=== PATIENT | female | born 1985 | race Caucasian/White ===

== ENCOUNTER 2017-05-10 13:38 | Emergency (ER) | payer OTHER ==
[2017-05-10] MEDS ORDERED: NORMAL SALINE 10 ML SYRINGE FLUSH IVP PRN (14:04)
[2017-05-10] MEDS ORDERED: Sodium Chloride 0.9% 1,000 ML PRIMARY IV ONE ×2 (14:04→17:16)
[2017-05-10 14:12] VITALS: TEMP 100
[2017-05-10 14:15] LABS: BASOPHILS # (AUTO) 0.07 10*3/UL; BASOPHILS % (AUTO) 0.8 % (0-1); EOSINOPHILS # (AUTO) 0.09 10*3/UL; EOSINOPHILS % (AUTO) 1.1 % (0-8); HEMATOCRIT 37.8 % (37.0-47.0); LYMPHOCYTES # (AUTO) 1.77 10*3/uL; MEAN CORPUSCULAR HEMOGLOBIN 30.5 PG (27-31); MEAN CORPUSCULAR HGB CONC 34.4 g/dL (33-37); MEAN CORPUSCULAR VOLUME 88.7 FL (81-99); MONOCYTES # (AUTO) 0.54 10*3/UL (0.3-0.8); MONOCYTES % (AUTO) 6.5 % (5-15); NEUTROPHILS # (AUTO) 5.81 10*3/UL; NEUTROPHILS % (AUTO) 70.1 % (50-80); RED BLOOD COUNT 4.26 10^6/uL (4.20-5.40)
[2017-05-10 14:16] LABS: BILIRUBIN,URINE NEGATIVE (NEG); CLARITY,URINE CLEAR (CLEAR); COLOR,URINE YELLOW; GLUCOSE, URINE (UA) NEGATIVE (NEG); NITRATE,URINE NEGATIVE (NEG); OCCULT BLOOD,URINE NEGATIVE (NEG); PH,URINE 5.5 (5.0-8.5); PROTEIN,URINE NEGATIVE (NEG); UROBILINOGEN,URINE 0.2 EU/dL (0.2)
[2017-05-10 14:17] LABS: URINE SAMPLE TYPE VOIDED SPECIMEN
[2017-05-10 14:27] LABS: BLOOD UREA NITROGEN 5 mg/dL (7-22); CALCIUM 9.9 mg/dL (8.7-10.7); EST GLOMERULAR FILTRATION > 60 (>60 ml/min/1.73m(2)); LIPASE 31 IU/L (23-300); SERUM ALBUMIN 4.9 g/dL (3.5-4.8)
[2017-05-10] MEDS ORDERED: MORPHINE SULFATE 4 MG/1 ML IVP ONE ×2 (14:41→17:14)
[2017-05-10] MEDS ORDERED: ONDANSETRON 4 MG/2 ML VIAL IVP ONE (14:41)
[2017-05-10 14:53] LABS: PLATELET MORPHOLOGY COMMENT NORMAL MORPHOLOGY (NORM); RBC MORPHOLOGY COMMENT NORMAL MORPHOLOGY (NORM); WBC MORPHOLOGY COMMENT NORMAL MORPHOLOGY (NORM)
[2017-05-10] MEDS ORDERED: Famotidine Inj 20 MG in Normal Saline Flush 10 ML IVP ONE (15:49)
--- NOTE | 2017-05-10 17:06 | DI ---
History, right-sided abdominal pain Comparison: None Findings: There is unremarkable. Gallbladder is present Spleen unremarkable Pancreas unremarkable No adrenal masses Double aorta is unremarkable There is mild fullness in the superior pelvic calyceal system of the right kidney, but there are no r enal or ureteral calculi, and this may represent a parapelvic cyst. There is a 5 mm nonobstructing calculus in the left pelvic calyceal system. There is no left-sided hy dronephrosis. Left ureter is normal in course and caliber. Urinary bladder is a remarkable. Within the posterior true pelvis, there are 2 cystic lesions. One is positioned to the right of midli ne and measures roughly 5 x 5 x 5 cm. The second cystic lesion is positioned in the left posterior pe lvis and measures roughly 5 x 4 x 5 cm. The caba of the cystic lesions are within, and I can see no associated soft tissue density, however evaluation is limited due to lack of IV contrast enhancement. There are no gross uterine lesions. There is no intestinal obstruction. There is no focal inflammation to indicate appendicitis or divert iculitis. The appendix is normal in appearance. There is no free air. There is no free. Impression 2 large, simple appearing cyst in the posterior true pelvis. I can see no associated wall thickening, or soft tissue components, but evaluation is limited due to lack of IV contrast enhancement. These l ikely represent ovarian cyst. Nonobstructing calculus in the left pelvic calyceal system. Mild fullness in the superior pole calyx of the right kidney, but there are no obstructing calculi, a nd I believe this is an incidental finding. Findings were relayed to the ER physician at 4:50 PM
[2017-05-10 17:57] VITALS: RESP 14
--- NOTE | 2017-05-10 19:26 | DI ---
HISTORY: Pelvic mass/cyst. COMPARISON: None available. TECHNIQUE: Sonographic images of the pelvis were obtained and submitted for interpretation. FINDINGS: There is evidence of a 6 cm right and 4.3 cm left ovarian cyst. Uterus and endometrium ar e unremarkable. IMPRESSION: 1. Evidence of a 6 cm right and 4.3 cm left ovarian cyst. Uterus and endometrium are unremarkable. Followup recommended. NOTE: The interpreting Radiologist was not present at the time of ultrasound interrogation.
--- NOTE | 2017-05-11 06:26 | PDOC ---
Abdomen/Flank HPI - General Chief Complaint: Abdomen Pain Stated Complaint: RUQ PAIN Date Seen by Provider: 05/10/17 Time Seen by Provider: 13:55 Source: POSITIVE: Patient Exam Limitations: POSITIVE: No limitations Nurse's Notes Reviewed & Considered: Yes - History of Present Illness Initial Comments: The patient is a 32-year-old female. She states that for the past 3-4 days she has had "dull pain" in the right side of her abdomen, right upper quadrant more so than right lower. She's had 2 sections in the past and no other abdominal surgery. She states she's had nausea but no vomiting. 3 loose bowel movements today. No melena, hematochezia, hematemesis, dysuria or hematuria. Last menstrual period was 11 April. Body Location Affected: REPORTS: Abdomen Timing: REPORTS: Constant Duration: >24 hours (3-4 days) Severity: Moderate Quality: REPORTS: "Pain" Abdominal Pain Onset Location: REPORTS: RUQ, RLQ, Epigastric Abdominal Pain Radiation: REPORTS: No radiation Context: REPORTS: None Modifying Factors: improves with: Nothing Associated Symptoms: REPORTS: Nausea Similar Symptoms Previously: No Recent Care Received: REPORTS: Denies Any Prior Injuries Related to Current Complaint?: No - Patient Home Medications Home Medications: Home Medications Ibuprofen [Advil] 400 mg PO Q6H PRN PRN 05/10/17 Psyllium Husk [Metamucil] 1 each PO DAILY PRN 05/10/17 - Patient Allergies Allergies/Adverse Reactions: Allergies Allergy/AdvReac Type Severity Reaction Status Date / Time amoxicillin [Amoxicillin] Allergy Intermediate rash Verified 05/10/17 13:51 Past Medical History - heen HEENT History: Denies History Cardiovascular History: Denies History Respiratory History: Denies History Gastrointestinal History: GERD Additional Gastrointestinal History: Tums approx three times a week Genitourinary History: Denies History Endocrine History: Denies History Musculoskeletal History: Denies History Prosthesis or Implant: No Additional Musculoskeletal History: back pain with prenancy Neurological History: Denies History Blood Disorders: Denies History Psychiatric History: Denies History Additional Psychiatric History: concerned about depression History of Sexually Transmitted Diseases: No Female Reproductive History: Denies History LMP: 04/10/17 Obstetrical History: Delivery Cancer History: Denies History In Past Year Been Physically Harmed or Verbally Threatened: No History of MDRO: No History of Other Communicable Diseases: No Tobacco Use: Never Smoker Alcohol Use: None Substance Use Type: None Previous Surgical History: Yes Type / Date of Surgery: several years ago Tonsilar abscess and had T and A. C- Section 2014 Anesthesia Reactions: No Malignant Hyperthermia: No Significant Family History: Cancer, Diabetes, Hypertension Past Medical History Reviewed: Reviewed - No Changes ROS - Limitations ROS Limitations: No Limitations Constitution: REPORTS: Denies Symptoms Cardiovascular: REPORTS: Denies Cardiac Symptoms Respiratory: REPORTS: Denies Resp Symptoms Neurological: REPORTS: Denies Neuro Symptoms Gastrointestinal: REPORTS: Abdominal Pain, Nausea Endocrine: REPORTS: Denies Symptoms Musculoskeletal: REPORTS: Denies MS Symptoms Genitourinary: REPORTS: Denies Symptoms Eyes: REPORTS: Denies Symptoms ENT: REPORTS: Denies Symptoms Skin: REPORTS: Denies Skin Symptoms Lympathic: REPORTS: Denies Lympathic Symptoms Immunologic: POSITIVE: Denies Symptoms Psychiatric: POSITIVE: Denies Psych Symptoms Abdominal/Flank Pain PE - General Appearance General Appearance: POSITIVE: Alert, Cooperative, No Acute Distress, No Evidence of Trauma - HEENT HEENT: POSITIVE: Head Inspection Nml, Eyes Inspection Nml, Ears Inspection Nml, Nose Inspection Nml, Oral/Dental Inspect. Nml, Pharynx Inspect. Nml, PERRL, EOMI - Neck Neck: POSITIVE: Normal Inspection, No Apparent Injury - Respiratory Respiratory: POSITIVE: No Respiratory Distress, Breath Sounds Normal, Chest Non- Tender - Cardiovascular Cardiovascular: POSITIVE: Regular Rate and Rhythm, Heart Sounds Normal, Equal Pulses, Strong Pulses Peripheral Pulses: Radial (R): 2+, Radial (L): 2+ - Chest Chest: POSITIVE: Non Tender - Abdomen Abdomen: Soft: (All Quadrants), Normal Bowel Sounds: (All Quadrants), Denies Tenderness: (LLQ), (LUQ), No Splenomegaly: (All Quadrants), No Hepatomegaly: ( All Quadrants), No Guarding: (All Quadrants), No Rebound: (All Quadrants), No Palpable Pulse: (All Quadrants), No Palpabale Mass: (All Quadrants), No Distention: (All Quadrants), No Rigidity: (All Quadrants), Tenderness Noted: ( RUQ), (RLQ) Additional Abdominal Details: Abdominal examination shows bowel sounds to be active. Patient has discomfort/ pain on palpation right upper quadrant and epigastrium and also right paraumbilical area and right lower abdomen. No masses, organomegaly or rebound. - Back Back: POSITIVE: Normal Inspection. NEGATIVE: CVA Tenderness (R), CVA Tenderness (L) - Skin Skin: POSITIVE: Intact, Normal For Race, Warm, Dry, No Rash - Extremities Extremity: Non-Tender: (All Extremities), Normal ROM: (All Extremities), Normal Inspection: (All Extremities) - Neurological Neurological: POSITIVE: Oriented X3, cloud architect Normal As Tested, Motor Normal, Sensation Normal, 5, 6 - Psychological Psychiatric: POSITIVE: Affect Appropriate, Mood Appropriate Images - Complete Complete: 1 - Area of described pain Abdomen Progress - Results Reviewed by me Xrays/CTs/US Reviewed by me: Yes Discussed with Radiologist: Yes Radiology Findings: Right upper quadrant ultrasound negative for gallstones or any other ultrasonographic abnormalities. CT abdomen and pelvis with IV contrast shows 2 large pelvic cystic lesions. Pelvic ultrasound shows right ovarian cyst measuring 6 cm x 4.8 cm and left ovarian cyst injuring 3.2 cm x 4.3 cm with good bilateral ovarian blood flow. Lab Results Reviewed: Yes Lab Results:: Laboratory Results 05/10/17 Range/Units 13:54 WBC 8.30 (4.8-10.8) 10^3/uL RBC 4.26 (4.20-5.40) 10^6/uL Hgb 13.0 (12.0-16.0) g/dL Hct 37.8 (37.0-47.0) % MCV 88.7 (81-99) FL MCH 30.5 (27-31) PG MCHC 34.4 (33-37) g/dL RDW Std Deviation 40.2 (39-50) fL RDW Coeff of [place] 12.5 (11.5-14.5) % Plt Count 209 (140-350) 10*3/uL MPV 11.0 (7.4-12.2) FL Immature Gran % (Auto) 0.2 (0-5) % Neut % (Auto) 70.1 (50-80) % Lymph % (Auto) 21.3 (10-50) % [place] % (Auto) 6.5 (5-15) % Eos % (Auto) 1.1 (0-8) % Baso % (Auto) 0.8 (0-1) % Immature Gran # (Auto) 0.02 10*3/UL Neut # (Auto) 5.81 10*3/UL Lymph # (Auto) 1.77 10*3/uL [place] # (Auto) 0.54 (0.3-0.8) 10*3/UL Eos # (Auto) 0.09 10*3/UL Baso # (Auto) 0.07 10*3/UL WBC Morphology Comment Normal morphology (NORM) Plt Morphology Comment Normal morphology (NORM) RBC Morph Comment Normal morphology (NORM) Sodium 137 (135-145) meq/L Potassium 3.5 L (3.8-5.2) meq/L Chloride 106 (98-112) meq/L Carbon Dioxide 18 L (23-33) meq/L Anion Gap 13 (5-20) BUN 5 L (7-22) mg/dL Creatinine 0.5 (0.50-1.20) mg/dL Estimated GFR > 60 (>60 ml/min/1.73m(2)) BUN/Creatinine Ratio 10.00 (6-20) Glucose 102 (78-110) mg/dL Calculated Osmolality 280.0 (267-292) mOsm/kg Calcium 9.9 (8.7-10.7) mg/dL Total Bilirubin 0.6 (0.3-1.2) mg/dL AST 29 (8-39) IU/L ALT 42 (9-52) IU/L Alkaline Phosphatase 58 (38-126) IU/L Total Protein 7.4 (6.1-8.0) g/dL Albumin 4.9 H (3.5-4.8) g/dL Globulin 2.5 (2.50-4.10) g/dL Albumin/Globulin Ratio 1.90 (1.3-2.0) mg/g Amylase 62 (30-110) U/L Lipase 31 (23-300) IU/L Serum HCG, Qual Negative Ur Collection Type Voided specimen Urine Color Yellow Urine Clarity Clear (CLEAR) Urine pH 5.5 (5.0-8.5) Ur Specific [place] <=1.005 (1.005-1.030) Urine Protein Negative (NEG) mg/dl Urine Glucose (UA) Negative (NEG) mg/dL Urine Ketones Trace (NEG) Urine Occult Blood Negative (NEG) Urine Nitrate Negative (NEG) Urine Bilirubin Negative (NEG) Urine Urobilinogen 0.2 (0.2) EU/dL Ur Leukocyte Esterase Negative (NEG) Ur Culture Indicated? Culture not set - Patient's Progress Pain Medication Addressed: POSITIVE: Yes (Morphine sulfate given in ER) School/Work Release Addressed: POSITIVE: Not Applicable Re-examine Time: 18:40 Re-Examine Comment: Discomfort less on discharge Status: POSITIVE: Improved, Re-Examined - Consult Counseled: POSITIVE: Patient, Family (), RE: Lab Results, RE: Radiology Results, RE: DX, RE: Need for F/U Patient Care Time - Estimated PCT Patient Care Time (In Minutes): 60 Vital Signs - VS Reviewed Vital Signs Reviewed: Yes Discharge Clinical Impression: Ovarian cyst, Abdominal pain Discharge Disposition: Discharged to Home Condition: Stable Patient Instructions Given at Discharge: Ovarian Cyst (ED) Additional Instructions: I believe you're abdominal discomfort is caused by 2 large ovarian cyst. The right ovarian cyst is larger than the left. The cyst source simple and there is no evidence of tumors. Other then the ovarian cysts. Your ultrasounds and CAT scan is normal. No evidence of appendicitis. Your blood and urine tests are normal. Please apply warm moist compresses to area of discomfort. Take Aleve, 2 every 12 hours. Follow-up with Dr. Kurtz in 5-10 days. Return here anytime if condition worsens in any way whatsoever. Follow Up With: ISIDRO JONES [Primary Care Provider] - (Instructions as above. Follow-up with your primary care provider. Return here anytime if condition worsens in any way whatsoever.)
--- NOTE | 2017-05-11 08:43 | DI ---
History: Abdominal pain Comparison: No previous ultrasound examinations of the abdomen for comparison. Findings: Liver measures 17.8 cm. There are no focal hepatic lesions. There is no intrahepatic biliary ductal d ilatation. Parenchyma is homogeneous. Gallbladder is free of stones and sludge. There is no wall thickening. Wall measures 2 mm. Common ashley e duct is normal in diameter measuring 4 mm. There is no choledocholithiasis. Right kidney measures 11.4 x 5.9 x 6.1 cm. There are no echogenic or anechoic cortical lesions. There is no hydronephrosis. There are no shadowing calculi. Proximal aortic diameter is 1.8 cm. Mid aortic dimensions diameter is 1.4 cm. Distal aortic diameter is 1.4 cm. Impression: Unremarkable ultrasound examination of the abdomen
== END 2017-05-10 18:55 | disposition home or self-care (01) ==
LOC: ER 13:38
DX: N83.202 Unspecified ovarian cyst, left side (principal); R10.31 Right lower quadrant pain; R11.0 Nausea; R10.11 Right upper quadrant pain
CPT/HCPCS: 74177; 76705; 76856; 80053; 81003; 82150; 83690; 84703; 85025; 96361; 96374; 96375; 99283 ×2; J2270; J2405; S0028; J7030